=== PATIENT | female | born 1980 | race American Indian/Alaskan Native ===

== ENCOUNTER 2020-06-29 09:38 | Outpatient (CLI) | payer MEDICARE, MEDICAID, SELFPAY ==
--- NOTE | ~2020-06-29 | XR_ITS ---
EXAMINATION: XR thoracic spine 3V DATE: 06/29/2020 10:45 INDICATION: Thoracic radiculopathy TECHNIQUE: AP, lateral and lateral swimmer's views of the thoracic spine were obtained. COMPARISON: 10/03/2015 FINDINGS: Thoracolumbar David rods are noted. The thoracic vertebral body heights are normal. Th ere is mild loss of intervertebral disc space height at a few levels in the thoracic spine. Thoracic vertebral body alignment is normal. Small degenerative osteophytes project from the anterior endplate s of multiple vertebral bodies. Chronic loss of vertebral body height at L3 is noted. IMPRESSION: 1. Mild thoracic spondylosis without acute findings or significant interval change. Reviewed, dictated and finalized at location A. H [employer]ER IMPRESSION: 1. Mild thoracic spondylosis without acute findings or significant interval adonis e.
--- NOTE | ~2020-06-29 | DEXA_ITS ---
Bone Density Report Name: Kaela Faust Age: 39 Sex: Female Ethnicity: White Date of : 1980 Indication: postmenopausal; prior fracture; secondary osteoporosis; Referring Provider: MaddieHira Ames Study: Bone densitometry was performed. Exam Date: June 29, 2020 Accession number: [id number] Bone Density: Region BMD T-score Z-score Classification Femoral Neck (Left) 0.610 -2.1 -1.8 Osteopenia Total Hip (Left) 0.681 -2.1 -1.9 Osteopenia Femoral Neck (Right) 0.582 -2.4 -2.1 Osteopenia Total Hip (Right) 0.625 -2.6 -2.4 Osteoporosis Femoral Neck Mean 0.596 -2.3 -1.9 Osteopenia Total Hip Mean 0.653 -2.4 -2.2 Osteopenia World Health Organization criteria for BMD impression classify patients as: Normal (T-score at or above -1.0), Osteopenia (T-score between -1.0 and -2.5), or Osteoporosis (T-score at or below -2.5). 10-year Fracture Risk: FRAX not reported because: Some T-score for Spine Total or Hip Total or Femoral Neck at or below -2.5 Prior hip or vertebral fracture Treated for osteoporosis Clinical Information Provided by Patient: Have had a previous hip or vertebral fracture Has had a low trauma fracture Smokes Has secondary osteoporosis Is being treated for osteoporosis Has used the following medications: Fosamax (i.e. alendronate), HRT (i.e. estrogen/hormone therapy), Vitamin D Menopause Age: 24 Drinks caffeinated beverages Onset of menses at age 7 Impression: The patient has established osteoporosis, based on the Right Total Hip T-score and the existence of a prior fracture. The patient has risk factors, including: smoking, previous fracture. Discussion: It is important to ask patients whether they are taking their medications and to encourage continued and appropriate compliance with their osteoporosis therapies to reduce fracture risk. It is also important to review their risk factors and encourage appropriate calcium and vitamin D intakes, exercise, fall prevention and other lifestyle measures. Follow-Up: Consider a repeat BMD and Vertebral Fracture Assessment (VFA) exam in 2 years or sooner if medically necessary, to reassess this patient's status. Reported by: Dr. Sam Mcneil on 06/29/2020 10:45:00 AM. Reviewed, dictated and finalized at location AZelda TREVIZO
== END 2020-06-29 09:39 | disposition home or self-care (01) ==
PROVIDERS: PCP Family Medicine; Visit Provider Family Medicine
DX: M54.14 Radiculopathy, thoracic region (principal); M81.0 Age-related osteoporosis without current pathological fracture
CPT/HCPCS: 72072; 77080